=== PATIENT | female | born 1995 | race Caucasian/White ===

== ENCOUNTER 2018-06-30 17:42 | Observation (INO) ==
[2018-06-30] MEDS ORDERED: Tetanus/Diphtheria Toxoid Adult Vaccine Inj 0.5 ML Vial IM ONE (18:26)
--- NOTE | 2018-06-30 19:01 | XR ---
EXAM DATE: 06/30/2018 6:46 PM EST AGE/SEX: 23 years / Female INDICATIONS: Trauma to right foot, patient dropped TV stand on 3rd toe CLINICAL DATA: This is the patient's initial encounter. Patient reports that signs and symptoms have been present for 1 day and indicates a pain score of 10/10. MEDICAL/SURGICAL HISTORY: None. None. COMPARISON: No prior exams available for comparison. FINDINGS: Comminuted distal tuft fracture seen of the third toe with an apparent associated soft tissue lacerat ion. 2 mm radiopaque foreign body seen near the tip of the second toe but I don't see a second toe fr acture. 1 cm area of benign-appearing sclerosis seen in the fourth metatarsal neck region, probably melorheos tosis. CONCLUSION: Severely comminuted and open distal tuft fracture of the third toe. Small radiopaque foreign body at the tip of the second toe. Electronically signed by: Dez Seaman MD 06/30/2018 7:00 PM EST
[2018-06-30] MEDS ORDERED: ceFAZolin 2 GM Premix Inj 2 GM/50 ML PIGGYBACK IV.SIG ONE (19:21)
[2018-06-30] MEDS ORDERED: Bupivacaine PF 0.5% Inj 30 ML Vial NERV BLOCK ONE (19:22)
[2018-06-30] MEDS ORDERED: fentaNYL Citrate Inj 250 MCG/5 ML Ampul ONE (20:14)
--- NOTE | 2018-06-30 20:18 | P.CONPOD ---
History of Present Illness Service: podiatry Consult date: 06/30/18 Reason for Consult: right 3rd toe open fracture Primary Care Provider: No Primary Care Physician History of Present Illness: Patient dropped TV on her toe earlier this evening and came in with nail damage and essentially a partial amputation. Uncertain if she was wearing shoe gear. She was irrigated in ED and podiatry consulted. Review of Systems All other systems reviewed negative except as stated in HPI PMFSH - History History Provided By: Patient - Medical History Medical History: Medical History (Last Reviewed 06/30/18 @ 20:26 by YOAN Ragsdale) Patient denies medical problems - Surgical History Surgical History: Surgical History (Last Reviewed 06/30/18 @ 20:26 by YOAN Ragsdale) No history of previous surgery - Substance Use Type Marijuana Status: Active Route Used: Inhalation Reason for Use: Calm Down - Travel History Recent Travel in the [facility] Within the Last 8 Weeks: No Recent Travel Out of the Country Within the Last 8 Weeks: No Medications and Allergies Allergies Allergy/AdvReac Type Severity Reaction Status Date / Time No Known Allergies Allergy Verified 06/30/18 17:55 Physical Exam Vital signs: Vital Signs 06/30/18 17:49 Temperature 98.7 F Pulse Rate 107 H Respiratory Rate 18 Blood Pressure 138/62 Pulse Oximetry 100 Intake & Output 06/30/18 06/30/18 07/01/18 06:59 18:59 06:59 Intake Total 50 / 50 Balance 50 / 50 Weight 68.039 kg Intake: IV 50 / 50 Ancef 2 GM Premix Inj 2 gm In 50 / 50 50 ml @ 100 mls/hr IV.SIG ONCE ONE Rx#:[id number] Narrative: right 3rd distal toe with central transverse nail bed laceration down to level of bone with capillary refill intact to remainder of distal digit, which is connected plantarly. Neurovascularly intact otherwise to right lower extremity. Results - Labs CBC & Chem 7: 06/30/18 20:27 06/30/18 20:27 - Imaging Impressions Foot X-Ray 06/30/18 18:26 CONCLUSION: Severely comminuted and open distal tuft fracture of the third toe. Small radiopaque foreign body at the tip of the second toe. Assessment and Plan - Assessment (1) Fracture of toe, open Code(s): S92.919B - Unspecified fracture of unspecified toe(s), initial encounter for open fracture Status: Acute Plan: NPO to OR for I&D open fracture and repair within the hour Plan for 24 hour admit per hospitalist service for IV antibiotics to reduce risk of amputation, per open fracture standard of care.
--- NOTE | 2018-06-30 20:28 | ED ---
HPI General Chief Complaint: Extremity Injury, Lower Stated Complaint: injury Time Seen by Provider: 06/30/18 19:18 Source: patient and family Mode of arrival: ambulatory History of Present Illness HPI Narrative: 23-year-old white female presents emergency department with a injury to her right third toe which occurred sometime around 515 this evening. She was barefoot at the time when she had dropped part of her TV stand onto her foot. This caused a laceration to her third right toe cutting the distal tip and pulling the nail out. Patient complained of mild to moderate pain. She denies any numbness or tingling. Exacerbated by ambulation. Some relief with elevation. No other injury. Patient has not had a tetanus shot in 5 years. Past medical history: Denies Surgical history: Denies Social history: Drinks alcohol. No drugs. No tobacco. Last menstrual period: Now Related Data Previous Rx's Medication Instructions Recorded amoxicillin-pot clavulanate 1 tab PO BID #14 tab 07/01/18 [Augmentin] hydrocodone-acetaminophen 1 tab PO Q4H PRN #15 tab 07/01/18 sennosides [Senna Lax] 17.2 mg PO Q12H PRN tab 07/01/18 Allergies Allergy/AdvReac Type Severity Reaction Status Date / Time No Known Allergies Allergy Verified 06/30/18 17:55 Review of Systems ROS: all other systems reviewed are negative [facility] Medical History Medical History Patient denies medical problems (Acute) Surgical History Surgical History No history of previous surgery (Acute) Family History Family History Mother Diabetes Social History Social History Substance History: Active Abuse Second Hand Smoke Exposure: No Smoking Status: Never smoker How Often Do You Have a Drink Containing Alcohol: Monthly or less Recent Travel in [facility] within the Last 8 Weeks: No Recent Out of Country Travel within the Last 8 Weeks: No Exam Narrative Exam Narrative: GENERAL: Well-developed, well-nourished in no apparent distress. Nontoxic appearing. HEAD: Normocephalic, atraumatic. EYES: Pupils equal round and reactive. Extraocular motions intact. No scleral icterus. No injection or drainage. ENT: Nose clear. Throat without erythema, tonsillar hypertrophy or exudate. Uvula midline. Airway patent. NECK: Trachea midline. Supple, nontender, moves head freely. No central bony tenderness or spasm. CARDIOVASCULAR: Regular rate and rhythm without murmurs, gallops, or rubs. RESPIRATORY: Clear to auscultation. Breath sounds equal bilaterally. No wheezes , rales, or rhonchi. GASTROINTESTINAL: Abdomen soft, non-tender, nondistended. No hepato-splenomegaly , or palpable masses. No guarding. EXTREMITIES: No clubbing, cyanosis,. Examination of the right foot reveals a partial amputation of the distal tip of the third toe. The nail is avulsed out of the eponychial space. She has an obvious open fracture of the distal phalanx through the nail bed. She has intact sensation with good cap refill of the distal phalanx. Remainder the foot is unremarkable. No pain in the forefoot, heel, Achilles or ankle. The remainder of the extremity is unremarkable. The left lower extremity as well as upper extremities are unremarkable. BACK: Nontender without deformity. No flank tenderness. NEUROLOGICAL: Awake, alert and oriented x 3 .Cranial nerves grossly intact. Motor and sensory grossly within normal limits. Normal speech. Procedures Laceration Laceration 1: Site: lower extremity Side (If applicable): right Size (cm): 1.5 Description: linear and clean Depth: simple, single layer Anesthetic used: lidocaine 1% Anesthesia technique:: nerve block Amount (mL): 4 Pre-repair:: wound explored, irrigated extensively and deep structures intact (Patient has a open fracture with laceration to the nailbed) Skin layer closed with: prolene Size (cm): 5-0 Number of sutures:: 4 Technique:: simple, interrupted Subcutaneous layer closed with: vicryl Size: 5-0 Number of sutures: 3 Technique:: simple, interrupted Course Initial Documented Vital Signs Temperature 98.7 F 06/30/18 17:49 Pulse Rate 107 H 06/30/18 17:49 Respiratory Rate 18 06/30/18 17:49 Blood Pressure 138/62 06/30/18 17:49 Pulse Oximetry 100 06/30/18 17:49 Last Documented Vital Signs Temperature 96.2 F L 07/01/18 16:00 Pulse Rate 69 07/01/18 16:00 Respiratory Rate 20 07/01/18 16:00 Blood Pressure 112/57 L 07/01/18 16:00 Pulse Oximetry 100 07/01/18 16:00 Medical Decision Making MDM Narrative Medical decision making narrative: IV access is obtained. Patient is given 2 g of Ancef IV. Tetanus immunization. She is given a total of 2 mg of Ativan IV for anxiety. The toe was irrigated, this the nailbed is repaired. I have discussed the case with Dr. Whitten on the cigarette making machine catcher. She has reviewed the record and her x-rays. She feels that this should go to the operating room to be washed out. The patient sutures are removed. A wet-to-dry dressing is applied. Medical Screen Exam Complete: Yes Emergency Medical Condition: Yes Differential Diagnosis Differential Diagnosis: MDM: High Differential diagnoses: Fracture, sprain, strain, dislocation, contusion, neurovascular injury, open fracture, nailbed laceration Lab Data Result diagrams: 06/30/18 20:27 06/30/18 20:27 POC Results POC Urine Results Negative Lab Results 06/30/18 06/30/18 Range/Units 20:27 20:27 WBC 7.0 (4.0-11.0) th/mm3 RBC 3.54 L (4.00-5.30) mil/mm3 Hgb 11.6 (11.6-15.3) gm/dL Hct 32.5 L (35.0-46.0) % MCV 91.9 (80.0-100.0) fL MCH 32.8 (27.0-34.0) pg MCHC 35.7 (32.0-36.0) % RDW 12.6 (11.6-17.2) % Plt Count 213 (150-450) th/mm3 MPV 8.8 (7.0-11.0) fL Neut % (Auto) 73.8 H (16.0-70.0) % Lymph % (Auto) 17.5 (9.0-44.0) % [place] % (Auto) 7.9 (0.0-8.0) % Eos % (Auto) 0.5 (0.0-4.0) % Baso % (Auto) 0.3 (0.0-2.0) % Neut # (Auto) 5.2 (1.8-7.7) th/mm3 Lymph # (Auto) 1.2 (1.0-4.8) th/mm3 [place] # (Auto) 0.6 (0.0-0.9) th/mm3 Eos # (Auto) 0.0 (0.0-0.4) th/mm3 Baso # (Auto) 0.0 (0.0-0.2) th/mm3 WBC Differential . Differential Comment Auto diff final Sodium 143 (136-145) meq/L Potassium 3.6 (3.5-5.1) meq/L Chloride 110 H (98-107) meq/L Carbon Dioxide 25.8 (21.0-32.0) meq/L Anion Gap 7 (5-15) meq/L BUN 8 (7-18) mg/dL Creatinine 0.66 (0.50-1.00) mg/dL Estimated GFR Greater than 89 (>89) mL/min Random Glucose 93 (74-106) mg/dL Calcium 8.1 L (8.5-10.1) mg/dL Imaging Data Radiologist's impression: Foot X-Ray 06/30/18 18:26 CONCLUSION: Severely comminuted and open distal tuft fracture of the third toe. Small radiopaque foreign body at the tip of the second toe. Discharge Plan Discharge Disposition Patient Disposition: 01 Discharge Home Discharge Condition Condition: Stable Discharge Order Discharge Orders: Discharge Order (Routine); Ordered 07/01/18 Ordered By: Maggie Valdovinos Discharge Details Anticipated Discharge Date: 07/01/18 Discharge Comment: d/c after 3rd dose of Ancef at 7 pm Physicians Team ED Provider: Freeman Del Toro ED Midlevel Provider: Robin Paulino Primary Care Provider: Primary Care Kinza Osullivan Attending Provider: Maggie Valdovinos Other Providers: [facility],Insurance Status ED Status: Left Department Discharge Information Discharge Date/Time: 06/30/18 21:00 Addendum entered and electronically signed by YOAN Ragsdale 06/30/18 20: 49: The patient will be taken to the OR by Dr. Londono
[2018-06-30] MEDS ORDERED: Bupivacaine PF 0.25% Inj 30 ML Vial ONE (20:45)
[2018-06-30 21:08] LABS: Baso % (Auto) 0.3 % (0.0-2.0); Eos % (Auto) 0.5 % (0.0-4.0); Hematocrit 32.5 % (35.0-46.0); Hemoglobin 11.6 gm/dL (11.6-15.3); Lymph # (Auto) 1.2 th/mm3 (1.0-4.8); Lymph % (Auto) 17.5 % (9.0-44.0); Mean Corpuscular HGB Conc 35.7 % (32.0-36.0); Mean Corpuscular Hemoglobin 32.8 pg (27.0-34.0); Mean Corpuscular Volume 91.9 fL (80.0-100.0); Mean Platelet Volume 8.8 fL (7.0-11.0); Mono # (Auto) 0.6 th/mm3 (0.0-0.9); Mono % (Auto) 7.9 % (0.0-8.0); Neut # (Auto) 5.2 th/mm3 (1.8-7.7); Neut % (Auto) 73.8 % (16.0-70.0); Platelet Count 213 th/mm3 (150-450); Red Blood Count 3.54 mil/mm3 (4.00-5.30); Red Cell Distribution Width 12.6 % (11.6-17.2)
[2018-06-30] MEDS ORDERED: Bisacodyl 10 MG Supp RECTAL PRN (21:12)
[2018-06-30] MEDS ORDERED: Succinylcholine Inj 100 MG/5 ML Syringe IV.PUSH ONE (21:20)
[2018-06-30] MEDS ORDERED: Lidocaine PF 1% Inj 5 ML Syringe OTHER ONE (21:20)
--- NOTE | 2018-06-30 21:34 | P.BOP ---
- Preoperative Diagnosis (1) Fracture of toe, open - Postoperative Diagnosis (1) Fracture of toe, open Date of procedure: 06/30/18 Procedure: 1. Irrigation and debridement of open fracture right 3rd toe with nail bed laceration repair Right distal digit with transverse central nail bed laceration present dorsally and intact plantar tuft skin flap with capillary refill intact. No gross debris noted. Irrigation with 3L normal saline with irrigant, followed by debridement of nonviable tissue with rongeur down to level of bone. Closure primarily with 3-0 prolene suture, followed by dressing with xeroform, 4x4, cling, tracey right foot. Weightbearing as tolerated right foot in surgical shoe ok. No tourniquet utilized. Culture right 3rd toe. 10mL 0.25% marcaine plain. Disposition: No further surgery planned. Needs to complete 3 doses Ancef 2g IV prior to discharge on broad spectrum oral antibiotics tomorrow in roughly 24 hours. Follow up in clinic next week for dressing change Keep current bandage clean, dry, intact until then. Ice/elevate and reduce activity as needed. Anesthesia: MAC, local (10mL 0.25% marcaine plain) Surgeon: Kalli Londono DPM Piecer: staff Estimated blood loss (mL): 2 Pathology: other (Culture right 3rd toe) Condition: stable Disposition: PACU
[2018-06-30 21:38] LABS: Anion Gap 7 meq/L (5-15); Blood Urea Nitrogen 8 mg/dL (7-18); Calcium 8.1 mg/dL (8.5-10.1); Carbon Dioxide 25.8 meq/L (21.0-32.0); Chloride 110 meq/L (98-107); Glomerular Filtration Rate Greater Than 89 mL/min (>89); Glucose,Random 93 mg/dL (74-106); Potassium 3.6 meq/L (3.5-5.1); Sodium 143 meq/L (136-145)
[2018-06-30] MEDS ORDERED: ceFAZolin 2 GM Premix Inj 2 GM/50 ML PIGGYBACK IV.SIG SCH (22:00)
[2018-06-30] MEDS ORDERED: Morphine Inj 4 MG/ML Vial IV.PUSH PRN (22:58)
--- NOTE | 2018-06-30 23:11 | P.HPIM ---
History of Present Illness Service: [facility] Primary Care Physician: No Primary Care Physician Chief Complaint: toe pain History of Present Illness: 23 y/o female with no medical history presented to the ED with complaints of right 3rd digit pain. Patient states earlier today she was carrying a tv when the stand of the TV came off and landed on her toe. She was taken to surgery by DR. Dorado from the ED. She was seen post surgery and denies any pain currently. She also denies any chest pain, sob, fever, chills, nausea or vomiting. [facility] Medical History Medical History Patient denies medical problems (Acute) Surgical History Surgical History No history of previous surgery (Acute) Family History Family History Mother Diabetes Social History Social History Substance History: Active Abuse Second Hand Smoke Exposure: No Smoking Status: Never smoker How Often Do You Have a Drink Containing Alcohol: Monthly or less Recent Travel in [email or web address] within the Last 8 Weeks: No Recent Out of Country Travel within the Last 8 Weeks: No Substance Abuse Detail Marijuana: Substance Use Status: Active Route Used Substance Abuse: Inhalation Reason for Use: Calm Down Immunization History Tetanus Immunization: >5 Years Medications and Allergies Allergies Allergy/AdvReac Type Severity Reaction Status Date / Time No Known Allergies Allergy Verified 06/30/18 17:55 Active Medications: Active Medications Hydrocodone Bitart/Acetaminophen ([place] 5/325) 1 tab PO Q4H PRN PRN Reason: PAIN SCALE 1 TO 10 Al Hydroxide/Mg Hydroxide (Milk Of Magnesia Liq) 30 ml PO Q12H PRN PRN Reason: Mild Constipation Bisacodyl (Dulcolax Supp) 10 mg RECTAL DAILY PRN PRN Reason: SEVERE CONSITIPATION Cefazolin Sodium/Dextrose (Ancef 2 Gm Premix Inj) 2 gm in 50 mls @ 100 mls/hr IV.SIG Q8H DONALD Stop: 07/01/18 20:29 Lactulose (Lactulose Liq) 30 ml PO DAILY PRN PRN Reason: SEVERE CONSITIPATION Miscellaneous Information (Misc Nursing Information) 1 each OTHER UNSCH PRN PRN Reason: SEE LABEL COMMENTS Stop: 07/01/18 22:04 Morphine Sulfate (Morphine Inj) 2 mg IV.PUSH Q3H PRN PRN Reason: BREAKTHROUGH PAIN Sennosides (Senokot) 17.2 mg PO Q12H PRN PRN Reason: Moderate Constipation Physical Exam Vital signs: Last Vital Signs Temp 98.9 F 06/30/18 22:00 Pulse 75 06/30/18 22:45 Resp 20 06/30/18 22:45 BP 110/57 L 06/30/18 22:45 Pulse Ox 98 06/30/18 22:45 Intake & Output 06/28/18 06/29/18 06/30/18 07/01/18 06:59 06:59 06:59 06:59 Intake Total 750 / 750 Output Total Balance 748 / 748 Weight 68.039 kg Narrative: GENERAL: Well nourished patient in no acute distress SKIN: Warm and dry.Right 3rd digit wrapped in gauze, no drainage, covered with tracey HEAD: Normocephalic. EYES: No scleral icterus. No injection or drainage. NECK: Supple, trachea midline. No JVD or lymphadenopathy. CARDIOVASCULAR: Regular rate and rhythm without murmurs, gallops, or rubs. RESPIRATORY: Breath sounds equal bilaterally. No accessory muscle use. GASTROINTESTINAL: Abdomen soft, non-tender, nondistended. MUSCULOSKELETAL: Mild edema to Right foot, able to wiggle toes, sensation intact Assessment and Plan Plan Right 3rd toe fracture Foot XR reviewed and shows a Severely comminuted and open distal tuft fracture of the third toe. Small radiopaque foreign body at the tip of the second toe. -Patient taken to OR by podiatry, Irrigation and debridement of open fracture right 3rd toe with nail bed laceration repair was completed -Pain management with PO norco and IV morphine -Per podiatry Patient needs to complete 3 doses Ancef 2g IV prior to discharge on broad spectrum oral antibiotics tomorrow in roughly 24 hours, Follow up in clinic next week for dressing change, Keep current bandage clean, dry, intact until then, Ice/elevate and reduce activity as needed. DVT prophylaxis: SCDs on non effected leg Discussed Condition With: Patient and RN
[2018-07-01] MEDS: ceFAZolin 2 GM Premix Inj 2 GM/50 ML PIGGYBACK IV.SIG SCH ×3 (05:22→19:02)
[2018-07-01 08:34] VITALS: RESP 20
--- NOTE | 2018-07-01 10:24 | P.PNIM ---
Subjective Interval history: Follow-up for right third toe fracture No overnight events. Pain is moderately controlled, no fever or chills. Physical Exam Vital signs: Vital Signs 06/30/18 17:49 06/30/18 22:00 06/30/18 22:15 Temperature 98.7 F 98.9 F Pulse Rate 107 H 82 75 Respiratory Rate 18 24 16 Blood Pressure 138/62 97/21 L 102/57 L Pulse Oximetry 100 96 95 06/30/18 22:30 06/30/18 22:45 06/30/18 23:00 Temperature Pulse Rate 73 75 88 Respiratory Rate 16 20 22 Blood Pressure 107/59 L 110/57 L 114/63 Pulse Oximetry 96 98 93 L 06/30/18 23:15 06/30/18 23:30 07/01/18 04:00 Temperature 97.6 F 97.8 F 97.8 F Pulse Rate 90 80 82 Respiratory Rate 18 16 18 Blood Pressure 98/51 L 111/66 109/56 L Pulse Oximetry 92 L 93 L 97 07/01/18 08:00 Temperature 96.5 F L Pulse Rate 73 Respiratory Rate 20 Blood Pressure 104/53 L Pulse Oximetry 98 Intake & Output 06/30/18 07/01/18 07/01/18 18:59 06:59 18:59 Intake Total 800 / 800 Output Total 2 / 2 Balance 798 / 798 Weight 68.039 kg 68 kg Intake: IV 100 / 100 Ancef 2 GM Premix Inj 2 gm In 100 / 100 50 ml @ 100 mls/hr IV.SIG Q8H DONALD Rx#:[id number] Anesthesia Amount 700 / 700 Output: Estimated Blood Loss 2 / 2 Other: # Voids 2 Date of Last Bowel Movement 06/30/18 Weight On Admission 68 kg Narrative: GENERAL: Well nourished patient in no acute distress NECK: Supple, trachea midline. No JVD or lymphadenopathy. CARDIOVASCULAR: Regular rate and rhythm without murmurs, gallops, or rubs. RESPIRATORY: Breath sounds equal bilaterally. No accessory muscle use. GASTROINTESTINAL: Abdomen soft, non-tender, nondistended. MUSCULOSKELETAL: Mild edema to Right foot, able to wiggle toes, sensation intact , right foot dressings in place Results - Labs CBC & Chem 7: 06/30/18 20:27 06/30/18 20:27 Laboratory Results - last 24 hr 06/30/18 06/30/18 20:27 20:27 WBC 7.0 RBC 3.54 L Hgb 11.6 Hct 32.5 L MCV 91.9 MCH 32.8 MCHC 35.7 RDW 12.6 Plt Count 213 MPV 8.8 Neut % (Auto) 73.8 H Lymph % (Auto) 17.5 [place] % (Auto) 7.9 Eos % (Auto) 0.5 Baso % (Auto) 0.3 Neut # (Auto) 5.2 Lymph # (Auto) 1.2 [place] # (Auto) 0.6 Eos # (Auto) 0.0 Baso # (Auto) 0.0 WBC Differential . Differential Comment Auto diff final Sodium 143 Potassium 3.6 Chloride 110 H Carbon Dioxide 25.8 Anion Gap 7 BUN 8 Creatinine 0.66 Estimated GFR Greater than 89 Random Glucose 93 Calcium 8.1 L Microbiology 06/30/18 21:38 Wound - Toe Fungal Smear - Final No fungal elements seen 06/30/18 21:38 Wound - Toe Gram Stain - Final - Imaging Impressions Foot X-Ray 06/30/18 18:26 CONCLUSION: Severely comminuted and open distal tuft fracture of the third toe. Small radiopaque foreign body at the tip of the second toe. Assessment and Plan - Plan Right 3rd toe fracture Foot XR reviewed and shows a Severely comminuted and open distal tuft fracture of the third toe. Small radiopaque foreign body at the tip of the second toe. -Patient taken to OR by podiatry, Irrigation and debridement of open fracture right 3rd toe with nail bed laceration repair was completed -Pain management with PO norco on discharge. Complete 3 doses of Ancef and then switched to Augmentin for 1 week. Per podiatry, follow up in clinic next week for dressing change, Keep current bandage clean, dry, intact until then, Ice/elevate and reduce activity as needed. DVT prophylaxis: SCDs on non effected leg Discharge patient to home Condition on discharge: Improved Regular Diet as tolerated Ad Maisha activity Rx written: Melanie Augmentin Follow-up with podiatry
[2018-07-01 12:22] VITALS: PULSE 69
[2018-07-01 16:36] VITALS: BP 112/57; TEMP 96.2; O2SAT 100
--- NOTE | 2018-07-07 19:01 | MP ---
cc: Kalli Londono DPM DATE OF OPERATION: 06/30/2018 INDICATIONS: The patient presented initially after dropping a TV on her right third toe. She sustained a nail bed laceration and an open fracture. I discussed with the patient the risks, benefits, potential complications of surgery, high infection risk if she did not undergo surgery. She agreed to move forward with irrigation and debridement of open fracture, right third toe with nail bed laceration repair. She was seen in preop holding by myself, nursing staff, and anesthesia, where the correct patient, side, and site were all confirmed to be correct and the right third toe. She was then taken to the surgical suite in supine position. Attention was directed to that right foot where it was prepped and draped in normal sterile fashion after a timeout per facility protocol. The the right distal digit was noted to have a transverse central nail bed laceration present to the dorsal aspect. The toenail had been removed in the emergency department, there was noted to be intact plantar tuft skin flap with intact capillary refill as well. It did appear to be viable. No gross debris was noted within the wound. It was irrigated with 3 liters of normal sterile saline with irrigant followed by debridement of nonviable tissue using a rongeur and #15 blade, down to the level of bone. Following irrigation, closure was performed primarily with 3-0 Prolene suture, followed by dressing consisting of Xeroform, 4 x 4's, Ignacia and Henry bandage to the right foot. She will be weightbearing as tolerated to the right foot in surgical shoe and will follow up in the clinic in a week for dressing change and in 2 weeks, approximately for suture removal. SHORT OPERATIVE NOTE SURGEON: Kalli Londono DPM IT SECURITY ARCHITECT: Staff. PREOPERATIVE DIAGNOSIS: Fracture open to distal phalanx, right third toe. POSTOPERATIVE DIAGNOSIS: Fracture open to distal phalanx, right third toe. PROCEDURE PERFORMED: Irrigation and debridement of open fracture, right third toe with nail bed laceration repair. ANESTHESIA: General endotracheal anesthesia plus local consisting of 10 mL of 0.25% Marcaine plain. ESTIMATED BLOOD LOSS: 2 mL PATHOLOGY: Culture, right third toe. ESTIMATED BLOOD LOSS: Minimal. HEMOSTASIS: No tourniquet utilized. COMPLICATIONS: None. CONDITION: Stable to PACU. DISPOSITION: Weightbearing as tolerated, surgical shoe. Follow up in clinic for a dressing change in 1 week and for possible suture removal in 2 weeks. Continue IV antibiotics for 24 hours and keep bandage clean, dry and intact until seen in clinic. ANÍBAL Santos/francisco javier , 05:25 PM , 05:31 PM
== END 2018-07-01 19:00 | disposition home or self-care (01) ==
LOC: NEDA 17:42 → NEPB 17:42 → NEDA 21:00 → NEPB 21:03 → HPAC 22:07 → H7ONC 23:51
PROVIDERS: ADMIT Hospitalist; ATTEND Hospitalist
DX: W20.8XXA Other cause of strike by thrown, projected or falling object, initial encounter; S92.531A Displaced fracture of distal phalanx of right lesser toe(s), initial encounter for closed fracture; Z23 Encounter for immunization; S91.214A Laceration without foreign body of right lesser toe(s) with damage to nail, initial encounter